=== PATIENT | male | born 1970 | race Caucasian/White ===

== ENCOUNTER 2021-06-22 07:02 | Emergency (ER) | payer MEDICAID ==
[~2021-06-22] VITALS: Ht 172.7 cm; Wt 110.0 kg
[2021-06-22] MEDS ORDERED: OXYCODONE HCL/ACETAMINOPHEN 5/325MG TABLET PO ONE (08:00)
[2021-06-22] MEDS ORDERED: OXYC-100 PO (10:26)
[2021-06-22] MEDS ORDERED: IBUP-2030 PO (10:27)
[2021-06-22 10:55] VITALS: BP 132/92
== END 2021-06-22 11:15 | disposition home or self-care (01) ==
LOC: ER 07:02
DX: S42.355A Nondisplaced comminuted fracture of shaft of humerus, left arm, initial encounter for closed fracture (principal); E11.9 Type 2 diabetes mellitus without complications; W01.0XXA Fall on same level from slipping, tripping and stumbling without subsequent striking against object, initial encounter; Y93.89 Activity, other specified; Y92.488 Other paved roadways as the place of occurrence of the external cause
CPT/HCPCS: 29105; 73060; 99283